=== PATIENT | female | born 1990 | race Caucasian/White ===

== ENCOUNTER 2017-03-04 17:01 | Emergency (ER) | payer SELFPAY | END 2017-03-04 22:50 | disposition home or self-care (01) | LOC: D.ER 17:01 | DX: F07.81 Postconcussional syndrome (principal); S29.012A Strain of muscle and tendon of back wall of thorax, initial encounter; V43.52XA Car driver injured in collision with other type car in traffic accident, initial encounter; Y93.89 Activity, other specified; Y92.410 Unspecified street and highway as the place of occurrence of the external cause; S39.012A Strain of muscle, fascia and tendon of lower back, initial encounter; S16.1XXA Strain of muscle, fascia and tendon at neck level, initial encounter ==

== ENCOUNTER 2018-10-11 02:36 | Emergency (ER) | payer SELFPAY ==
[~2018-10-11] VITALS: Ht 170.2 cm; Wt 100.0 kg
[2018-10-11 02:40] VITALS: Ht 170.2 cm; Wt 100.0 kg
[2018-10-11 04:02] LABS: HCG URINE NEGATIVE (NEGATIVE)
[2018-10-11] MEDS ORDERED: CYCLOBENZAPRINE10 MG PO (04:09)
[2018-10-11 05:39] VITALS: BP 123/75
== END 2018-10-11 05:26 | disposition home or self-care (01) ==
LOC: D.ER 02:36
PROVIDERS: Family Medicine
DX: T14.8XXA Other injury of unspecified body region, initial encounter (principal); Y04.2XXA Assault by strike against or bumped into by another person, initial encounter; Y93.89 Activity, other specified; Y92.89 Other specified places as the place of occurrence of the external cause

== ENCOUNTER 2018-12-06 00:04 | Emergency (ER) | payer SELFPAY ==
[~2018-12-06] VITALS: Ht 170.2 cm; Wt 100.0 kg
[~2018-12-06 00:04] MED LIST: CYCLOBENZAPRINE10 MG PO
[2018-12-06 00:07] VITALS: Ht 170.2 cm; Wt 100.0 kg
[2018-12-06 00:42] LABS: BASOPHILS 0.3 % (0-2); EOSINOPHILS 2.5 % (0-7); HEMATOCRIT 38.8 % (36.0-48.0); HEMOGLOBIN 12.8 g/dL (12-16); IMMATURE GRANULOCYTES 0.3 % (0-5); LYMPHOCYTES 33.6 % (15-50); MCH 30.3 pg (26.0-34.0); MCV 91.9 fL (80.0-100.0); MONOCYTES 5.4 % (2-11); NEUTROPHILS 57.9 % (40-80); PLATELET COUNT 223 10x3/uL (130-400); RBC 4.22 10x6/uL (4.00-5.40); RDW 12.8 % (11.5-14.5); WBC 9.7 10x3/uL (4.8-10.8)
[2018-12-06 00:47] LABS: COLOR YELLOW (YELLOW); HCG URINE NEGATIVE (NEGATIVE)
[2018-12-06 00:48] LABS: APPEARANCE CLEAR (CLEAR); BACTERIA FEW /hpf (NEGATIVE); BILIRUBIN NEGATIVE (NEGATIVE); EPITHELIAL CELLS 0-5 /hpf (0-5); GLUCOSE NEGATIVE (NEGATIVE); KETONE NEGATIVE (NEGATIVE); NITRITE NEGATIVE (NEGATIVE); PROTEIN NEGATIVE (NEGATIVE); RED CELLS - URINE 0-5 /hpf (0-5); SPECIFIC GRAVITY 1.015 (1.005-1.020); UROBILINOGEN NORMAL (NORMAL); WHITE CELLS - URINE 0-5 /hpf (NEGATIVE)
[2018-12-06 00:56] LABS: ALBUMIN 3.4 g/dL (3.4-5.0); ALKALINE PHOSPHATASE 63 U/L (46-116); ALT (SGPT) 38 U/L (10-68); BILIRUBIN - TOTAL 0.14 mg/dL (0.2-1.3); CALC OSMOLALITY 278 mosm/kg (275-300); CALCIUM 8.5 mg/dL (8.5-10.1); CARBON DIOXIDE 30.2 mmol/L (21.0-32.0); CHLORIDE - SERUM 104 mmol/L (98-107); CREATININE - SERUM 0.8 mg/dL (0.6-1.3); GLUCOSE 93 mg/dL (74-106); POTASSIUM - SERUM 3.7 mmol/L (3.5-5.1); PROTEIN - SERUM 7.8 g/dL (6.4-8.2); SODIUM 141 mmol/L (136-145); UREA NITROGEN 7 mg/dL (7-18); eGFR NON AFRICAN AMERICAN 90 mL/min (90-120)
[2018-12-06 00:58] LABS: AMYLASE - SERUM 44 U/L (25-115); LIPASE 150 U/L (73-393); TROPONIN-I < 0.017 ng/mL (0.000-0.060)
[2018-12-06] MEDS ORDERED: ULTRAM50 MG PO (03:29)
[2018-12-06 03:50] VITALS: BP 127/66
== END 2018-12-06 04:05 | disposition home or self-care (01) ==
LOC: D.ER 00:04
PROVIDERS: Family Medicine
DX: N83.202 Unspecified ovarian cyst, left side (principal); F17.210 Nicotine dependence, cigarettes, uncomplicated

== ENCOUNTER 2019-02-03 17:29 | Emergency (ER) | payer MEDICAID ==
[~2019-02-03] VITALS: Ht 170.2 cm; Wt 100.0 kg
[~2019-02-03 17:29] MED LIST changes: +ULTRAM50 MG PO
[2019-02-03 17:38] VITALS: Ht 170.2 cm; Wt 100.0 kg
[2019-02-03 18:09] LABS: BASOPHILS 0 % (0-2); HEMOGLOBIN 13.2 g/dL (12-16); IMMATURE GRANULOCYTES 0.4 % (0-5); LYMPHOCYTES 11.1 % (15-50); MCH 30.1 pg (26.0-34.0); MCV 91.3 fL (80.0-100.0); MEAN PLATELET VOLUME 9.5 fL (7.4-10.4); MONOCYTES 9.4 % (2-11); NEUTROPHILS 78.1 % (40-80); RBC 4.38 10x6/uL (4.00-5.40); WBC 4.9 10x3/uL (4.8-10.8)
[2019-02-03 18:11] LABS: PLATELET COUNT 159 10x3/uL (130-400)
[2019-02-03 18:18] LABS: CALC OSMOLALITY 268 mosm/kg (275-300); CALCIUM 8.7 mg/dL (8.5-10.1); CARBON DIOXIDE 22.5 mmol/L (21.0-32.0); CHLORIDE - SERUM 101 mmol/L (98-107); CREATININE - SERUM 0.9 mg/dL (0.6-1.3); GLUCOSE 96 mg/dL (74-106); POTASSIUM - SERUM 3.8 mmol/L (3.5-5.1); SODIUM 135 mmol/L (136-145); UREA NITROGEN 10 mg/dL (7-18); eGFR NON AFRICAN AMERICAN 78 mL/min (90-120)
[2019-02-03 18:24] LABS: ALBUMIN 3.6 g/dL (3.4-5.0); ALKALINE PHOSPHATASE 56 U/L (46-116); ALT (SGPT) 47 U/L (10-68); BILIRUBIN - TOTAL 0.23 mg/dL (0.2-1.3); PROTEIN - SERUM 7.9 g/dL (6.4-8.2)
[2019-02-03] MEDS ORDERED: TAMIFLU75 MG PO (18:24)
[2019-02-03 18:45] VITALS: BP 136/89
== END 2019-02-03 18:47 | disposition home or self-care (01) ==
LOC: D.ER 17:29
PROVIDERS: Family Medicine
DX: J11.1 Influenza due to unidentified influenza virus with other respiratory manifestations (principal); Z72.0 Tobacco use